=== PATIENT | female | born 1960 | race Hispanic/Latino ===

== ENCOUNTER 2017-03-13 11:45 | Outpatient (CLI) | payer OTHER ==
--- NOTE | 2017-03-13 13:20 | XRay Report ---
Left knee: Pain. Multiple standing images are obtained. There are small periarticular spurs involving the medial joint compartment. The medial joint space appears slightly narrowed compared to the lateral. The articular surfaces are smooth and there is good alignment. The bones are well lateralized. There is no swelling and no effusion. Impression: Degenerative medial joint compartment changes.
== END 2017-03-13 11:46 | disposition home or self-care (01) ==
LOC: SPVIMAG 11:45
PROVIDERS: ATTEND Orthopaedic Surgery
DX: M17.12 Unilateral primary osteoarthritis, left knee (principal)